=== PATIENT | female | born 1950 | race Caucasian/White ===

== ENCOUNTER 2020-12-30 16:28 | Emergency (ER) | payer MEDICARE ==
[~2020-12-30] VITALS: Ht 157.5 cm; Wt 81.7 kg
[2020-12-30] MEDS ORDERED: MELOXICAM15 MG PO (20:46)
[2020-12-30] MEDS ORDERED: ACETAMINOPHEN-1 EAC2 PO (20:46)
[2020-12-30 20:57] VITALS: BP 121/78
== END 2020-12-30 20:57 | disposition home or self-care (01) ==
LOC: M.ERS 16:28
DX: M62.830 Muscle spasm of back (principal); E11.9 Type 2 diabetes mellitus without complications; M19.90 Unspecified osteoarthritis, unspecified site; F32.9 Major depressive disorder, single episode, unspecified; Z88.2 Allergy status to sulfonamides; W19.XXXA Unspecified fall, initial encounter; Y93.89 Activity, other specified; Y92.89 Other specified places as the place of occurrence of the external cause; Y99.8 Other external cause status

== ENCOUNTER → 2021-03-15 | Outpatient (CLI) | payer MEDICARE, BC ==
[~2021-03-15] MED LIST: ACETAMINOPHEN-1 EAC2 PO; MELOXICAM15 MG PO
== END ==
LOC: M.MRI 14:20
PROVIDERS: ATTEND Psychiatry & Neurology Neuromuscular Medicine
DX: I67.82 Cerebral ischemia (principal); G31.89 Other specified degenerative diseases of nervous system; H70.893 Other mastoiditis and related conditions, bilateral; G62.9 Polyneuropathy, unspecified; R41.3 Other amnesia; F41.9 Anxiety disorder, unspecified